=== PATIENT | male | born 1975 | race Caucasian/White ===

== ENCOUNTER 2017-07-19 07:25 | Emergency (ER) | payer OTHER ==
[2017-07-19] MEDS ORDERED: Proparacaine 0.5% Opth 15 ML BOT ONE (09:02)
[2017-07-19] MEDS ORDERED: Fluorescein Opthalmic Strip ONE ×2 (09:02→09:04)
== END 2017-07-19 09:58 | disposition home or self-care (01) ==
LOC: ERS 07:25
DX: H10.9 Unspecified conjunctivitis (principal); E10.9 Type 1 diabetes mellitus without complications; F17.210 Nicotine dependence, cigarettes, uncomplicated
CPT/HCPCS: 99283